=== PATIENT | female | born 1940 | race Two or more races ===

== ENCOUNTER 2020-03-08 13:46 | Inpatient (IN) | payer OTHER ==
[~2020-03-08] VITALS: Ht 165.1 cm; Wt 67.1 kg
[2020-03-08 14:12] VITALS: Ht 165.1 cm; Wt 67.1 kg
[2020-03-08 15:20] LABS: BASOPHIL % 0.4 % (0-2); PLATELET COUNT 313 x10^3mcL (130-400)
[2020-03-08 15:36] LABS: microscopic required? YES; urine erythrocyte 1+ (NEGATIVE)
[2020-03-08] MEDS ORDERED: BACLOFEN5 MG PO (16:17)
[2020-03-08] MEDS ORDERED: LATANOPROST2.5 ML (16:18)
[2020-03-08] MEDS ORDERED: DORZOLAMIDE HYD10 M4 (16:18)
[2020-03-08] MEDS ORDERED: METOPROLOL ER-1 EACH PO (16:18)
[2020-03-08] MEDS ORDERED: MOTION SICKNESS25 M1 PO (16:19)
[2020-03-08] MEDS ORDERED: GRALISE600 MG PO (16:19)
[2020-03-08] MEDS ORDERED: ATORVASTATIN CA40 M1 PO (16:20)
[2020-03-08] MEDS ORDERED: TREXALL5 MG PO (16:20)
[2020-03-08] MEDS ORDERED: RAYOS5 MG PO (16:21)
[2020-03-08] MEDS ORDERED: NATURE'S BLEND F1 MG PO (16:21)
[2020-03-08] MEDS ORDERED: ULTRAM50 MG PO (16:22)
[2020-03-08] MEDS ORDERED: PANTOPRAZOLE SO40 M1 PO (16:22)
[2020-03-08] MEDS ORDERED: COZAAR100 MG PO (16:22)
[2020-03-08] MEDS ORDERED: AMLODIPINE BES1 CAP PO (16:23)
[2020-03-08 16:50] LABS: CALCIUM 8.5 mg/dL (8.5-10.1); CARBON DIOXIDE 22.2 mmol/L (21-32); CHLORIDE SERUM 99 mmol/L (98-107); CREATININE SERUM 0.9 mg/dL (0.6-1.0); GLUCOSE SERUM 93 mg/dL (74-106); SODIUM SERUM 130 mmol/L (136-145)
[2020-03-08 16:55] LABS: ALBUMIN 3.4 g/dL (3.4-5.0); ALKALINE PHOSPHATASE 54 U/L (46-116); ALT/SGPT 33 U/L (14-59); AST/SGOT 22 U/L (15-37); BILIRUBIN TOTAL 0.46 mg/dL (0.20-1.00); TOTAL PROTEIN, SERUM 6.3 g/dL (6.4-8.2)
[2020-03-08 17:05] LABS: T3 TOTAL 1.27 ng/mL
[2020-03-08 17:06] LABS: MAGNESIUM 2.3 mg/dL (1.8-2.4); PHOSPHOROUS 4.3 mg/dL (2.5-4.9)
[2020-03-08 17:40] LABS: CHOLESTEROL/HDL RATIO 1.8
[2020-03-08 18:04] LABS: FREE T4 0.94 ng/dL (0.76-1.46); FREE THYROXINE INDEX 2.2 ug/dL (1.4-4.5); T4(THYROXINE) 5.9 ug/dL (4.7-13.3)
[2020-03-08 21:39] VITALS: BP 105/81
[2020-03-09 05:20] VITALS: BP 137/68
[2020-03-09 07:30] LABS: CALCIUM 8.4 mg/dL (8.5-10.1); CARBON DIOXIDE 24.5 mmol/L (21-32); CHLORIDE SERUM 106 mmol/L (98-107); CREATININE SERUM 0.7 mg/dL (0.6-1.0); GLUCOSE SERUM 83 mg/dL (74-106); POTASSIUM SERUM 3.7 mmol/L (3.5-5.1); SODIUM SERUM 138 mmol/L (136-145)
[2020-03-09 07:32] LABS: BASOPHIL % 0.3 % (0-2); PLATELET COUNT 274 x10^3mcL (130-400)
[2020-03-09 08:39] VITALS: BP 147/72
[2020-03-09 12:24] VITALS: BP 126/58
[2020-03-09 17:34] VITALS: BP 123/64
[2020-03-09 18:52] LABS: CALCIUM 8.5 mg/dL (8.5-10.1); CHLORIDE SERUM 104 mmol/L (98-107); CREATININE SERUM 0.9 mg/dL (0.6-1.0); GLUCOSE SERUM 147 mg/dL (74-106); SODIUM SERUM 136 mmol/L (136-145)
[2020-03-09 21:05] VITALS: BP 95/39
[2020-03-10 05:36] VITALS: BP 137/74
[2020-03-10 08:04] LABS: CALCIUM 8.8 mg/dL (8.5-10.1); CARBON DIOXIDE 24.7 mmol/L (21-32); CHLORIDE SERUM 108 mmol/L (98-107); CREATININE SERUM 0.8 mg/dL (0.6-1.0); GLUCOSE SERUM 84 mg/dL (74-106); POTASSIUM SERUM 3.5 mmol/L (3.5-5.1); SODIUM SERUM 142 mmol/L (136-145)
[2020-03-10 08:28] VITALS: BP 133/63
[2020-03-10 08:35] LABS: BASOPHIL % 0.3 % (0-2); PLATELET COUNT 268 x10^3mcL (130-400)
[2020-03-10 12:17] VITALS: BP 148/66
[2020-03-10 12:33] LABS: RED CELL DISTRIBUTION WIDTH 19.2 % (11.5-14.5)
[2020-03-10 16:04] VITALS: BP 137/69
[2020-03-10 20:00] VITALS: BP 95/53
[2020-03-11 05:12] VITALS: BP 130/70
[2020-03-11 08:12] VITALS: BP 163/65
[2020-03-11 08:13] VITALS: BP 133/65
[2020-03-11 09:21] LABS: BASOPHIL % 0.3 % (0-2); PLATELET COUNT 249 x10^3mcL (130-400)
[2020-03-11 09:22] LABS: RED CELL DISTRIBUTION WIDTH 19.5 % (11.5-14.5)
[2020-03-11 10:03] LABS: CARBON DIOXIDE 23.8 mmol/L (21-32); CHLORIDE SERUM 108 mmol/L (98-107); CREATININE SERUM 0.6 mg/dL (0.6-1.0); GLUCOSE SERUM 77 mg/dL (74-106); MAGNESIUM 2.2 mg/dL (1.8-2.4); POTASSIUM SERUM 3.4 mmol/L (3.5-5.1); SODIUM SERUM 142 mmol/L (136-145)
[2020-03-11 11:58] VITALS: BP 117/60
[2020-03-11 16:14] VITALS: BP 125/64
[2020-03-11 19:58] VITALS: BP 137/45
[2020-03-12 04:59] VITALS: BP 148/70
[2020-03-12 07:35] LABS: BASOPHIL % 0.4 % (0-2); PLATELET COUNT 269 x10^3mcL (130-400); RED CELL DISTRIBUTION WIDTH 19.7 % (11.5-14.5)
[2020-03-12 07:39] LABS: CALCIUM 8.1 mg/dL (8.5-10.1); CARBON DIOXIDE 23.4 mmol/L (21-32); CHLORIDE SERUM 107 mmol/L (98-107); CREATININE SERUM 0.6 mg/dL (0.6-1.0); GLUCOSE SERUM 78 mg/dL (74-106); POTASSIUM SERUM 3.3 mmol/L (3.5-5.1); SODIUM SERUM 142 mmol/L (136-145)
[2020-03-12 09:27] VITALS: BP 152/82
[2020-03-12 14:31] VITALS: BP 166/94
[2020-03-12] MEDS ORDERED: METP PO (15:52)
[2020-03-12] MEDS ORDERED: PEP20 PO (15:52)
[2020-03-12] MEDS ORDERED: LOP50 PO (15:52)
[2020-03-12] MEDS ORDERED: FOL1 PO (15:52)
[2020-03-12] MEDS ORDERED: COL100 PO (15:52)
[2020-03-12 17:23] VITALS: BP 148/81
[2020-03-12 17:48] VITALS: BP 142/57
[2020-03-12 18:00] VITALS: BP 148/81
== END 2020-03-12 18:35 | disposition home or self-care (01) | DRG 378 ==
LOC: ED 13:46 → DU 16:29
PROVIDERS: Emergency Medicine; Internal Medicine Gastroenterology; ADMIT Family Medicine; ATTEND Family Medicine
PROC: 0DB68ZX Excision of Stomach, Via Natural or Artificial Opening Endoscopic, Diagnostic (ICD-10-PCS; principal; 2020-03-10 09:00)
PROC: 0DBE8ZZ Excision of Large Intestine, Via Natural or Artificial Opening Endoscopic (ICD-10-PCS; 2020-03-10 09:00)
DX: K29.71 Gastritis, unspecified, with bleeding (principal); E87.1 Hypo-osmolality and hyponatremia; K64.8 Other hemorrhoids; M06.9 Rheumatoid arthritis, unspecified; M79.7 Fibromyalgia; F03.90 Unspecified dementia, unspecified severity, without behavioral disturbance, psychotic disturbance, mood disturbance, and anxiety; I48.91 Unspecified atrial fibrillation; D64.9 Anemia, unspecified; E78.5 Hyperlipidemia, unspecified; K44.9 Diaphragmatic hernia without obstruction or gangrene; K57.30 Diverticulosis of large intestine without perforation or abscess without bleeding; Z88.0 Allergy status to penicillin; Z79.899 Other long term (current) drug therapy
CPT/HCPCS: 43235; 45378; 84439; C9113; G0378; J1200; J1610; J2250; J2310; J2916; J3010; J3490; J7030; J7512; J8597; J8610; Q0092